=== PATIENT | male | born 1990 | race Hispanic/Latino ===

== ENCOUNTER 2018-01-23 18:46 | Emergency (ER) | payer MEDICAID ==
[2018-01-23] MEDS ORDERED: LIDOCAINE 1% MPF 5 ML VIAL ONE (19:35)
[2018-01-23] MEDS ORDERED: TETANUS & DIPHTHERIA TOX,ADULT 0.5 ML VIAL ONE (19:35)
--- NOTE | 2018-01-23 20:08 | RAD REPORT ---
EXAM DESCRIPTION: RAD - Hand Left 3 View - 01/23/2018 8:02 pm CLINICAL HISTORY: Laceration to the thumb COMPARISON: None. FINDINGS: No fracture, dislocation or periosteal reaction noted. No acute bone or joint finding. No air or foreign body in the soft tissues. IMPRESSION: No foreign body. No acute bone finding.
--- NOTE | 2018-01-23 21:13 | ER ---
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 Transition of care: patient was not received from another setting of care. Onset of symptoms was January 23, 2018. Initial Sepsis Screen: Does the patient meet any 2 criteria? No. Patient's initial sepsis screen is negative. Does the patient have a suspected source of infection? No. Patient's initial sepsis screen is negative. Care prior to arrival: None. 18:50 Method Of Arrival: Ambulatory 18:50 Acuity: GURINDER 4 hj Triage Assessment: 18:52 General: Appears in no apparent distress. uncomfortable, Behavior is calm, cooperative, hj appropriate for age. Pain: Complains of pain in palmar aspect of distal phalanx of left thumb. Musculoskeletal: No signs and/or symptoms reported regarding the musculoskeletal system. Injury Description: Laceration. 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 - Social history:: Smoking status: Patient/guardian denies using tobacco. Screenin:49 Abuse screen: Denies threats or abuse. Denies injuries from another. Nutritional bs1 screening: No deficits noted. Tuberculosis screening: No symptoms or risk factors identified. Fall Risk None identified. Assessment: 19:00 General: Appears uncomfortable, Behavior is cooperative, anxious. Pain: Complains of bs1 pain in palmar aspect of distal phalanx of left thumb Pain does not radiate. Pain currently is 9 out of 10 on a pain scale. Quality of pain is described as throbbing. Neuro: Level of Consciousness is awake, alert, obeys commands, Oriented to person, place, time, situation, Appropriate for age. Cardiovascular: Denies chest pain, palpitations, shortness of breath, Heart tones S1 S2 present Capillary refill < 3 seconds Patient's skin is warm and dry. Respiratory: Airway is patent Trachea midline Respiratory effort is even, unlabored, Respiratory pattern is regular, symmetrical, Breath sounds are clear bilaterally. GI: No deficits noted. No signs and/or symptoms were reported involving the gastrointestinal system. : No deficits noted. No signs and/or symptoms were reported regarding the genitourinary system. EENT: No deficits noted. No signs and/or symptoms were reported regarding the EENT system. Derm: Skin x2 lateration to left thumb on biltaeral sides Wound noted Reports pain that is 9 out of 10 on a pain scale. Musculoskeletal: Circulation, motion, and sensation intact. Capillary refill < 3 seconds, Range of motion: limited in left hand Swelling present in left hand, left thumb. Injury Description: Laceration sustained to x2 laceration, both sides of left thumb, outter side of left thumb 1cm, inner side 2cm a small amount of bleeding noted at this time. 19:10 Reassessment: Soaked patients thumb in iodine/NS. Tolerated Well, suture kit set up for bs1 provider. 20:00 Reassessment: No changes from previously documented assessment. Patient and/or family bs1 updated on plan of care and expected duration. Pain level reassessed. Patient is alert, oriented x 3, equal unlabored respirations, skin warm/dry/pink. Neurovascular checks WNL. 20:55 Reassessment: Provider at bedside suturing thumb. bs1 21:41 Reassessment: Cleansed w/ NS applied triple antibiotic ointment, 4x4 applied with bs1 kerlix patient tolerated. Vital Signs: 18:52 BP 125 / 82; Pulse 89; Resp 18; Temp 97.8(TE); Pulse Ox 100% on R/A; Weight 86.64 kg; hj Height 5 ft. 5 in. (165.10 cm); Pain 5/10; 19:37 BP 143 / 74 RA Sitting (auto/reg); Pulse 91; Resp 18; Temp 97.8(TE); Pulse Ox 98% ; cc Pain 5/10; 20:37 BP 126 / 83; Pulse 85; Resp 17; Pulse Ox 100% on R/A; Pain 5/10; bs1 21:30 BP 131 / 78; Pulse 85; Resp 17; Temp 98.5(O); Pulse Ox 100% ; bs1 18:52 Body Mass Index 31.79 (86.64 kg, 165.10 cm) ED Course: 18:49 Patient arrived in ED. mr 18:52 Triage completed. hj 18:52 Arm band placed on right wrist. hj 19:14 Baljit Valverde NP is PHCP. pm1 19:15 Shashi Guerrier MD is Attending Physician. pm1 19:31 Taya Redman, THANH is Primary Nurse. bs1 19:49 Patient has correct armband on for positive identification. Bed in low position. Call bs1 light in reach. Side rails up X 1. Pulse ox on. NIBP on. 20:02 Hand Left 3 View XRAY In Process Unspecified. EDMS 21:42 No provider procedures requiring assistance completed. Patient did not have IV access bs1 during this emergency room visit. Administered Medications: 19:40 Drug: Tetanus-Diphtheria Toxoid Adult 0.5 ml {Taper Operator: [employer]. Exp: bs1 05/09/2020. Lot #: [id number]. } Route: IM; Site: left deltoid; 21:45 Follow up: Response: No adverse reaction bs1 20:55 Drug: Lidocaine (1 %) 5 ml Volume: 5 ml; Route: Infiltration; bs1 21:45 Follow up: Response: No adverse reaction bs1 Outcome: 21:12 Discharge ordered by MD. pm1 21:43 Discharged to home ambulatory. bs1 21:43 Condition: stable 21:43 Discharge instructions given to patient, Instructed on discharge instructions, follow up and referral plans. medication usage, Demonstrated understanding of instructions, follow-up care, medications, wound care, Prescriptions given X 1. 21:46 Patient left the ED. bs1 Signatures: Dispatcher [employer] EDOK JewellElif Julee Sims cc Roque Ndiaye RN RN Baljit Valverde NP DIABETES TERRITORY MANAGER pm1 Taya Redman, RN RN bs1 Corrections: (The following items were deleted from the chart) 18:54 18:52 Pulse 89bpm; Resp 18bpm; Pulse Ox 100% RA; Temp 97.8F Temporal; 86.64 kg; Height hj 5 ft. 5 in.; BMI: 31.7; Pain 5/10; hj
--- NOTE | 2018-01-23 21:13 | EDPHYS ---
Physician Documentation [facility] Name: Dada Claudio Age: 27 yrs Sex: Male : 1990 Arrival Date: 01/23/2018 Time: 18:49 Bed 20 Private MD: ED Physician Shashi Guerrier HPI: 01/23 21:00 This 27 yrs old Male presents to ER via Ambulatory with complaints of Thumb pm1 Injury. 21:00 The patient or guardian reports a laceration. The complaints affect the palmar aspect pm1 of proximal phalanx of left thumb. Context: resulted from Accident. Onset: The symptoms/episode began/occurred just prior to arrival. Associated signs and symptoms: Pertinent negatives: cyanosis distally, decreased sensation distally, numbness distally, tingling distally. patient was cutting a zip tie and accidentally cut his left thumb with a knife. 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 - Social history:: Smoking status: Patient/guardian denies using tobacco. ROS: 21:00 Constitutional: Negative for fever, chills, and weight loss, Eyes: Negative for injury, pm1 pain, redness, and discharge, ENT: Negative for injury, pain, and discharge, Neck: Negative for injury, pain, and swelling, Cardiovascular: Negative for chest pain, palpitations, and edema, Respiratory: Negative for shortness of breath, cough, wheezing, and pleuritic chest pain, Abdomen/GI: Negative for abdominal pain, nausea, vomiting, diarrhea, and constipation, Back: Negative for injury and pain, MS/Extremity: Negative for injury and deformity. 21:00 Neuro: Negative for headache, weakness, numbness, tingling, and seizure. 21:00 Skin: Positive for laceration(s), of the palmar aspect of proximal phalanx of left thumb. Exam: 21:00 Constitutional: This is a well developed, well nourished patient who is awake, alert, pm1 and in no acute distress. Head/Face: Normocephalic, atraumatic. Chest/axilla: Normal chest wall appearance and motion. Nontender with no deformity. No lesions are appreciated. Cardiovascular: Regular rate and rhythm with a normal S1 and S2. No gallops, murmurs, or rubs. Normal PMI, no JVD. No pulse deficits. Respiratory: Lungs have equal breath sounds bilaterally, clear to auscultation and percussion. No rales, rhonchi or wheezes noted. No increased work of breathing, no retractions or nasal flaring. Abdomen/GI: Soft, non-tender, with normal bowel sounds. No distension or tympany. No guarding or rebound. No evidence of tenderness throughout. Back: No spinal tenderness. No costovertebral tenderness. Full range of motion. 21:00 Skin: injury, laceration(s), the wound is approximately 2 cm(s), with a depth of 1 cm(s), of the palmar aspect of proximal phalanx of left thumb. 21:00 Neuro: Orientation: is normal, Sensation: is normal, no obvious gross deficits, Gait: is steady, at a normal pace, without difficulty. Vital Signs: 18:52 BP 125 / 82; Pulse 89; Resp 18; Temp 97.8(TE); Pulse Ox 100% on R/A; Weight 86.64 kg; hj Height 5 ft. 5 in. (165.10 cm); Pain 5/10; 19:37 BP 143 / 74 RA Sitting (auto/reg); Pulse 91; Resp 18; Temp 97.8(TE); Pulse Ox 98% ; cc Pain 5/10; 20:37 BP 126 / 83; Pulse 85; Resp 17; Pulse Ox 100% on R/A; Pain 5/10; bs1 21:30 BP 131 / 78; Pulse 85; Resp 17; Temp 98.5(O); Pulse Ox 100% ; bs1 18:52 Body Mass Index 31.79 (86.64 kg, 165.10 cm) hj Laceration: 21:09 Wound Repair of 3cm ( 1.2in ) subcutaneous laceration to palmar aspect of distal pm1 phalanx of left thumb. Linear shaped.. Distal neuro/vascular/tendon intact. Anesthesia: Local anesthetic administered with 2 mls of 1% lidocaine. Wound prep: Extensive cleansing with betadine by security systems technician, Wound irrigation with saline by security systems technician by ut, Wound explored extensively, Copious irrigation. Skin closed with 6 4-0 Prolene using simple sutures and sterile technique. Dressed with 4x4's. Patient tolerated well. MDM: 19:25 Patient medically screened. pm1 21:11 Data reviewed: vital signs. Data interpreted: Pulse oximetry: on room air is 98 %. pm1 Interpretation: normal. Counseling: I had a detailed discussion with the patient and/or guardian regarding: the historical points, exam findings, and any diagnostic results supporting the discharge/admit diagnosis, radiology results, the need for outpatient follow up, suture removal in 7-10 days, to return to the emergency department if symptoms worsen or persist or if there are any questions or concerns that arise at home. 01/23 19:48 Order name: Hand Left 3 View XRAY; Complete Time: 20:14 pm1 01/23 19:26 Order name: Prolene, Sutures; Complete Time: 19:36 pm1 01/23 19:26 Order name: Dressing - Wound; Complete Time: 19:36 pm1 01/23 19:26 Order name: Gloves, Sterile; Complete Time: 19:36 pm1 01/23 19:26 Order name: Setup Suture Tray; Complete Time: 19:36 pm1 Administered Medications: 19:40 Drug: Tetanus-Diphtheria Toxoid Adult 0.5 ml {Knitting Inspector: [employer]. Exp: bs1 05/09/2020. Lot #: [id number]. } Route: IM; Site: left deltoid; 21:45 Follow up: Response: No adverse reaction bs1 20:55 Drug: Lidocaine (1 %) 5 ml Volume: 5 ml; Route: Infiltration; bs1 21:45 Follow up: Response: No adverse reaction bs1 Disposition: 01/24 02:55 Co-signature as Attending Physician, Shashi Guerrier MD. Disposition: 01/23/18 21:12 Discharged to Home. Impression: Laceration without foreign body of left thumb without damage to nail. - Condition is Stable. - Discharge Instructions: Laceration Care, Adult. - Prescriptions for Bactrim DS 800- 160 mg Oral Tablet - take 1 tablet by ORAL route every 12 hours for 10 days; 20 tablet. - Medication Reconciliation Form, Thank You Letter, Antibiotic Education form. - Follow up: Emergency Department; When: As needed; Reason: Worsening of condition. Follow up: Private Physician; When: 7 - 10 days; Reason: Wound Recheck, Recheck today's complaints, Continuance of care, Staple/Suture removal, Re-evaluation by your physician. - Problem is new. - Symptoms have improved. - Notes: Take ibuprofen or tylenol as needed for pain Signatures: Dispatcher [employer] EDMS Roque Ndiaye, RN RN hj Baljit Valverde, CAMPUS SECURITY DIRECTOR CAMPUS SECURITY DIRECTOR pm1 Shashi Guerrier MD MD gs Salazar, Brittany, RN RN bs1 Corrections: (The following items were deleted from the chart) 01/23 19:59 19:26 Hand Right 3 View+RAD.RAD.BRZ ordered. EDMS EDMS
== END 2018-01-23 21:46 | disposition home or self-care (01) ==
LOC: ER 18:46
PROC: 0JQK0ZZ Repair Left Hand Subcutaneous Tissue and Fascia, Open Approach (ICD-10-PCS; principal; 2018-01-23)
DX: S61.012A Laceration without foreign body of left thumb without damage to nail, initial encounter (principal); W26.0XXA Contact with knife, initial encounter; Y93.89 Activity, other specified; Y92.9 Unspecified place or not applicable; Z23 Encounter for immunization
CPT/HCPCS: 90714; 99284

== ENCOUNTER 2020-07-25 11:47 | Emergency (ER) | payer MEDICAID ==
--- OUTSIDE RECORDS SUMMARY | 2020-07-25 11:49 | XMS REPORT | Continuity of Care Document ---
:1990 Author Organization [facility] t Address [address] [place] [address] Care Team Providers Name Role Phone Unavailable Unavailable Unavailable Problems Condition Condition Condition Status Onset Resolution Last Treating Co mments Source Name Details Category Date Date Treatment Clinician Date Pulmonary Pulmonary Problem Active [facility] valve [facility] - stenosis, stenosis, Eloy nahed unspecifie unspecifie l d etiology d etiology Ou tpati ent Clinics Encounter Encounter Diagnosis Active [facility] - general general Memoria adult adult l medical medical Outpati examinatio examinatio en t n without n without Clin ics abnormal abnormal findings findings Abnormal Abnormal Problem Active [facility] - rhythm rhythm [facility] Alcoholism Alcoholism Diagnosis Active [facility] Allergies, Adverse Reactions, Alerts This patient has no known allergies or adverse reactions. Medications This patient has no known medications. Procedures This patient has no known procedures. Encounters Start End Encounter Admission Attending Care Care Encounter Source Date/Time Date/Time Type Type Clinicians Facility Department ID 2020-04-22 2020-04-22 Outpatient Jenny Alvaradot [id number] [facility] 13:20:00 13:20:[address] [facility] Medicine Medicine Outpati ent Clinics 2019-04-22 2019-04-22 [facility] [id number] [facility] 13:00:00 13:00:[address] [facility] Medicine Medicine Outpati ent Clinics 2018-04-22 2018-04-22 [facility] [id number] [facility] 10:45:00 10:45:[address] [facility] Medicine Outpati ent Clinics 2018-01-21 2018-01-21 [facility] [id number] [facility] 11:15:00 11:15:00 [facility] Medicine Outpati ent Clinics Results This patient has no known results.
[2020-07-25] MEDS ORDERED: IBUPROFEN 400 MG TAB ONE (12:33)
[2020-07-25] MEDS ORDERED: HYDROCODONE/APAP 10/325 TAB ONE (12:33)
[2020-07-25 12:37] LABS: Urine Blood NEGATIVE (NEG); Urine Glucose NEGATIVE (NEG); Urine Protein NEGATIVE (NEG); Urine Specific Gravity 1.025 (1.005-1.030)
[2020-07-25 12:43] LABS: Urine Bacteria <20 /HPF (NONE SEEN); Urine Culture Reflex Order NOT NEEDED; Urine RBC <5 /HPF (NONE SEEN)
--- NOTE | 2020-07-25 13:12 | EDPHYS ---
Physician Documentation [facility] Name: Dada Claudio Age: 30 yrs Sex: Male : 1990 Arrival Date: 07/25/2020 Time: 11:48 Bed 20 Private MD: ED Physician Aries Webb HPI: 07/25 12:00 This 30 yrs old Male presents to ER via Unassigned with complaints of Scrotal rn Pain, Acute Onset. 12:00 The patient presents with scrotal pain, of the right side, without swelling, without rn erythema. 12:02 Modifying factors: The symptoms are alleviated by nothing, the symptoms are aggravated rn by pressure. Severity of symptoms: At their worst the symptoms were moderate, in the emergency department the symptoms have improved. The patient has experienced similar episodes in the past. Reports similar to past when diagnosed with scrotal cyst. No trauma. No fever/vomiting/penile discharge. No swelling or redness. No injury. . Historical: - Allergies: 12:09 No Known Allergies; bp - Home Meds: 12:09 None [Active]; bp - PMHx: 12:09 R TESTICLE CYST; bp - Immunization history:: Adult Immunizations up to date. - Social history:: Smoking status: Patient denies any tobacco usage or history of. - Family history:: not pertinent. - Hospitalizations: : No recent hospitalization is reported. ROS: 12:13 Constitutional: Negative for fever, chills, and weight loss, Abdomen/GI: Negative for rn abdominal pain, nausea, vomiting, diarrhea, and constipation, : Negative for injury, bleeding, discharge, and swelling. Exam: 12:13 Constitutional: This is a well developed, well nourished patient who is awake, alert, rn and in no acute distress. Abdomen/GI: soft, non-tender Male : No discharge or lesions. No swelling. Small mobile soft mass palpated inferior right scrotum. No epididymis swelling or tenderness. No discoloration. Vital Signs: 11:55 BP 137 / 101; Pulse 90; Resp 16; Temp 98; Pulse Ox 98% ; bp 13:22 BP 139 / 90; Pulse 88; Resp 16; Temp 98; Pulse Ox 98% ; bp MDM: 11:55 Patient medically screened. rn 13:10 Differential diagnosis: cyst, varicocele, torsion. Data reviewed: vital signs, nurses rn notes, lab test result(s), radiologic studies, ultrasound, and as a result, I will discharge patient. Counseling: I had a detailed discussion with the patient and/or guardian regarding: the historical points, exam findings, and any diagnostic results supporting the discharge/admit diagnosis, lab results, radiology results, the need for outpatient follow up, to return to the emergency department if symptoms worsen or persist or if there are any questions or concerns that arise at home. Response to treatment: the patient's symptoms have mildly improved after treatment, and as a result, I will discharge patient. Special discussion: I discussed with the patient/guardian in detail that at this point there is no indication for admission to the hospital. It is understood, however, that if the symptoms persist or worsen the patient needs to return immediately for re-evaluation. Based on the history and exam findings, there is no indication for further emergent testing or inpatient evaluation. I discussed with the patient/guardian the need to see the urologist for further evaluation of the symptoms. ED course: Small right varicocele, no evidence of torsion. Neg UA. . 07/25 12:00 Order name: Urine Microscopic Only; Complete Time: 12:46 rn 07/25 12:30 Order name: Urine Dipstick--Ancillary (enter results); Complete Time: 12:46 em1 07/25 12:03 Order name: Scrotum Testicles EDMS 07/25 12:00 Order name: Urine Dipstick-Ancillary (obtain specimen); Complete Time: 12:29 rn Administered Medications: 12:20 Drug: [place] 10 mg-325 mg 1 tabs Route: PO; bp 13:22 Follow up: Response: Pain is decreased bp 12:20 Drug: Motrin 800 mg Route: PO; bp 13:22 Follow up: Response: Pain is decreased bp Disposition: 07/25/20 13:11 Discharged to Home. Impression: Scrotal varicocele, right. - Condition is Stable. - Discharge Instructions: Scrotal Masses, Scrotal Swelling. - Prescriptions for Tramadol 50 mg Oral Tablet - take 1 tablet by ORAL route every 8 hours as needed; 15 tablet. - Medication Reconciliation Form, Thank You Letter, Antibiotic Education, Prescription Opioid Use form. - Follow up: Private Physician; When: As needed; Reason: Recheck today's complaints, Re-evaluation by your physician. - Problem is new. - Symptoms have improved. Signatures: Dispatcher [employer] [facility] Aries Webb MD MD rn Peltier, Brian, RN RN bp Corrections: (The following items were deleted from the chart) 12:23 12:07 Scrotum Testicles+US.RAD.BHUPENDRAZ ordered. [facility] 13:29 13:11 07/25/2020 13:11 Discharged to Home. Impression: Scrotal varicocele, right. bp Condition is Stable. Forms are Medication Reconciliation Form, Thank You Letter, Antibiotic Education, Prescription Opioid Use. Follow up: Private Physician; When: As needed; Reason: Recheck today's complaints, Re-evaluation by your physician. Problem is new. Symptoms have improved. rn
--- NOTE | 2020-07-25 13:12 | ER ---
Nurse's Notes [facility] Name: Dada Claudio Age: 30 yrs Sex: Male : 1990 Arrival Date: 07/25/2020 Time: 11:48 Bed 20 Private MD: Diagnosis: Scrotal varicocele, right Presentation: 07/25 11:55 Chief complaint: Patient states: RIGHT TESTICLE PAIN. Coronavirus screen: At this time, bp the client does not indicate any symptoms associated with coronavirus-19. Ebola Screen: No symptoms or risks identified at this time. Initial Sepsis Screen: Does the patient meet any 2 criteria? No. Patient's initial sepsis screen is negative. Does the patient have a suspected source of infection? No. Patient's initial sepsis screen is negative. Risk Assessment: Do you want to hurt yourself or someone else? Patient reports no desire to harm self or others. Onset of symptoms is unknown. 11:55 Method Of Arrival: Ambulatory bp 11:55 Acuity: GURINDER 3 bp Triage Assessment: 12:09 General: Appears in no apparent distress. uncomfortable, Behavior is cooperative, bp appropriate for age, anxious. Pain: Complains of pain in groin. EENT: No deficits noted. Neuro: No deficits noted. Cardiovascular: No deficits noted. Respiratory: No deficits noted. GI: No signs and/or symptoms were reported involving the gastrointestinal system. : Reports Scrotal pain: sudden onset. Derm: No deficits noted. Musculoskeletal: No deficits noted. Historical: - Allergies: 12:09 No Known Allergies; bp - Home Meds: 12:09 None [Active]; bp - PMHx: 12:09 R TESTICLE CYST; bp - Immunization history:: Adult Immunizations up to date. - Social history:: Smoking status: Patient denies any tobacco usage or history of. - Family history:: not pertinent. - Hospitalizations: : No recent hospitalization is reported. Screenin:10 Abuse screen: Denies threats or abuse. Denies injuries from another. Nutritional bp screening: No deficits noted. Tuberculosis screening: No symptoms or risk factors identified. Fall Risk None identified. Assessment: 12:10 General: SEE TRIAGE NOTE. bp 13:23 Reassessment: PT D/C HOME AMBULATORY, DX WITH SCROTAL VARICOCELE. bp Vital Signs: 11:55 BP 137 / 101; Pulse 90; Resp 16; Temp 98; Pulse Ox 98% ; bp 13:22 BP 139 / 90; Pulse 88; Resp 16; Temp 98; Pulse Ox 98% ; bp ED Course: 11:48 Patient arrived in ED. ag5 11:55 Aries Webb MD is Attending Physician. rn 12:05 Bhavin Meza, RN is Primary Nurse. bp 12:06 Triage completed. bp 12:10 Arm band placed on. bp 12:10 Patient has correct armband on for positive identification. Bed in low position. Call bp light in reach. Side rails up X2. 13:02 Scrotum Testicles In Process Unspecified. EDMS 13:23 No provider procedures requiring assistance completed. Patient did not have IV access bp during this emergency room visit. Administered Medications: 12:20 Drug: [place] 10 mg-325 mg 1 tabs Route: PO; bp 13:22 Follow up: Response: Pain is decreased bp 12:20 Drug: Motrin 800 mg Route: PO; bp 13:22 Follow up: Response: Pain is decreased bp Outcome: 13:11 Discharge ordered by . rn 13:23 Discharged to home ambulatory. bp 13:23 Condition: stable 13:23 Discharge instructions given to patient, Instructed on discharge instructions, follow up and referral plans. medication usage, Demonstrated understanding of instructions, follow-up care, medications, Prescriptions given X 1. 13:29 Patient left the ED. bp Signatures: Dispatcher [employer] EDTX Aries Webb MD MD rn Bhavin Meza, RN RN bp HayneskinKevin [email or web address] Corrections: (The following items were deleted from the chart) 13:24 13:23 Discharge instructions given to patient, Instructed on discharge instructions, bp follow up and referral plans. Demonstrated understanding of instructions, follow-up care, bp
--- NOTE | 2020-07-25 13:33 | RAD REPORT ---
EXAM DESCRIPTION: US - Scrotum Testicles - 07/25/2020 1:02 pm CLINICAL HISTORY: right testicular pain COMPARISON: SCROTUM TESTICLES dated 11/14/2013 FINDINGS: The right testicle 5.4 x 2.7 x 2.3 cm. No intratesticular masses or evidence of testicular torsion. The left testicle 4.9 x 3.1 x 2.5 cm. No intratesticular masses or evidence of testicular torsion. Both epididymides are normal in size and appearance. No pathologic fluid collections. Small right varicocele. IMPRESSION: No evidence of testicular torsion or intratesticular mass. Small right varicocele.
[2020-07-25 13:48] VITALS: TEMP 98; O2SAT 98
[2020-07-25 13:54] VITALS: BP 139/90
== END 2020-07-25 13:29 | disposition home or self-care (01) ==
LOC: ER 11:47
DX: I86.1 Scrotal varices (principal)
CPT/HCPCS: 76870; 81003; 81015; 99283

== ENCOUNTER 2021-09-09 12:07 | Emergency (ER) | payer OTHER ==
--- OUTSIDE RECORDS SUMMARY | 2021-09-09 12:10 | XMS REPORT | Continuity of Care Document ---
:1990 Author Organization [facility] t Address [address] [place] [address] Care Team Providers Name Role Phone Unavailable [...] Facility Department ID 2020-04-22 2020-04-22 Outpatient [facility] [place] [id number] [facility] 13:20:00 13:20:00 [facility] Clin[facility] 2019-04-22 2019-04-22 [facility] [id number] [facility] 13:00:00 13:00:00 [facility] 2018-04-22 2018-04-22 [facility] [id number] [facility] [address] 10:45:00 10:45:00 [facility] Medicine Outpati ent Clinics 2018-01-21 2018-01-21 [facility] [id number] [facility] 11:15:00 11:15:00 t [facility] Medicine Outpati ent Clinics Results This patient has no known results.
--- NOTE | 2021-09-09 13:47 | EDPHYS ---
Physician Documentation [facility] Name: Dada Claudio Age: 31 yrs Sex: Male : 1990 Arrival Date: 09/09/2021 Time: 12:11 Bed 8 Private MD: ED Physician Aries Webb HPI: 09/09 12:24 This 31 yrs old Male presents to ER via Ambulatory with complaints of Ear jmm Problem. 12:24 The patient presents with a foreign body sensation, a fullness. Onset: The jmm symptoms/episode began/occurred gradually, 1 day(s) ago. Modifying factors: The symptoms are alleviated by nothing, the symptoms are aggravated by nothing. Associated signs and symptoms: Pertinent negatives: cough, fever, shortness of breath. Symptoms occurred after using a Q-tip to remove wax from his right ear. 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 - Social history:: Smoking status: Patient denies any tobacco usage or history of. ROS: 12:24 Constitutional: Negative for fever, chills, and weight loss, Cardiovascular: Negative jmm for chest pain, palpitations, and edema, Respiratory: Negative for shortness of breath, cough, wheezing, and pleuritic chest pain. 12:24 ENT: Positive for ear pain. 12:24 All other systems are negative. Exam: 12:24 Constitutional: This is a well developed, well nourished patient who is awake, alert, jmm and in no acute distress. Head/Face: atraumatic. Eyes: EOMI, no conjunctival erythema appreciated 12:24 Neck: Trachea midline, Supple Chest/axilla: Normal chest wall appearance and motion. Cardiovascular: Regular rate and rhythm. No edema appreciated Respiratory: Normal respirations, no respiratory distress appreciated Abdomen/GI: Non distended, soft Back: Normal ROM Skin: General appearance color normal MS/ Extremity: Moves all extremities, no obvious deformities appreciated, no edema noted to the lower extremities Neuro: Awake and alert, normal gait Psych: Behavior is normal, Mood is normal, Patient is cooperative and pleasant 12:24 ENT: TM's: erythema, that is moderate, on the right, Partial TM occlusion. Vital Signs: 12:17 BP 141 / 84; Pulse 99; Resp 18; Temp 96.9; Pulse Ox 98% ; cs9 12:19 Weight 85.73 kg; Height 5 ft. 7 in. (170.18 cm); Pain 0/10; ll1 13:14 BP 132 / 78; Pulse 92; Resp 16; Pulse Ox 99% on R/A; ll3 13:50 BP 126 / 78; Pulse 99; Resp 17; Pulse Ox 96% on R/A; jl7 12:19 Body Mass Index 29.60 (85.73 kg, 170.18 cm) ll1 MDM: 12:24 Patient medically screened. [facility] 13:45 Data reviewed: vital signs, nurses notes. Counseling: I had a detailed discussion with maria the patient and/or guardian regarding: the historical points, exam findings, and any diagnostic results supporting the discharge/admit diagnosis, the need for outpatient follow up, to return to the emergency department if symptoms worsen or persist or if there are any questions or concerns that arise at home. 09/09 12:24 [facility] Order: [facility]!!; Complete Time: 13:09 [facility] Administered Medications: No medications were administered Disposition: 09/10 07:03 Co-signature as Attending Physician, Aries Webb MD I agree with the assessment and rn plan of care. Disposition Summary: 09/09/21 13:46 Discharge Ordered Location: Home [facility] Condition: Stable [facility] Diagnosis - Acute serous otitis media, right ear jmm - Partial cerumen impaction [facility] Followup: [facility] - With: Betty Brown MD - When: 2 - 3 days - Reason: Recheck today's complaints, Continuance of care, Re-evaluation by your physician Discharge Instructions: - Earwax Buildup, Adult [facility] - Otitis Media, Adult [facility] - Discharge Summary Sheet tw2 Forms: - Medication Reconciliation Form [facility] - Thank You Letter [facility] - Work release form tw2 - Antibiotic Education [facility] - Prescription Opioid Use [facility] Prescriptions: - Augmentin 875-125 mg Oral Tablet - take 1 tablet by ORAL route every 12 hours for 10 days; 20 tablet; Refills: 0, [facility] Product Selection Permitted Signatures: MicFidel cotter PA PA jmm Nieto, Roman, MD MD rn Nemesio Mathews RN RN ll1 Corrections: (The following items were deleted from the chart) 09/09 12:19 12:15 PMHx: heart condition-pulmonary; ll1 ll1
--- NOTE | 2021-09-09 13:47 | ER ---
Nurse's Notes [facility] Name: Dada Claudio Age: 31 yrs Sex: Male : 1990 Arrival Date: 09/09/2021 Time: 12:11 Bed 8 Private MD: Diagnosis: Acute serous otitis media, right ear;Partial cerumen impaction Presentation: 09/09 12:19 Chief complaint: Patient states: Used a Q-tip to clean his R ear out 3 days ago. ll1 Decreased hearing, and some pain since. Believes he has impacted serum. No fever. Coronavirus screen: Vaccine status: Patient reports receiving the 2nd dose of the covid vaccine. Client denies travel out of the [place] in the last 14 days. At this time, the client does not indicate any symptoms associated with coronavirus-19. Ebola Screen: Patient denies travel to an Ebola-affected area in the 21 days before illness onset. Initial Sepsis Screen: Does the patient meet any 2 criteria? No. Patient's initial sepsis screen is negative. Does the patient have a suspected source of infection? Yes: Other: ear pain. Risk Assessment: Do you want to hurt yourself or someone else? Patient reports no desire to harm self or others. Onset of symptoms was September 07, 2021. 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 - Social history:: Smoking status: Patient denies any tobacco usage or history of. Screenin:14 Abuse screen: Denies threats or abuse. Nutritional screening: No deficits noted. tw2 Tuberculosis screening: No symptoms or risk factors identified. Fall Risk None identified. Assessment: 12:20 General: Appears in no apparent distress. uncomfortable, Behavior is calm, cooperative. ll3 Pain: Complains of pain in right ear Pain does not radiate. Neuro: Level of Consciousness is awake, alert, obeys commands, Oriented to person, place, time, situation, Speech is normal, Facial symmetry appears normal. Cardiovascular: Patient's skin is warm and dry. Respiratory: Airway is patent Respiratory effort is even, unlabored, Respiratory pattern is regular, symmetrical. EENT: Ear canal Impacted ear wax. Reports decreased hearing in right ear. Derm: Skin is pink, warm \\T\\ dry. 13:08 Reassessment: Right ear irrigated with 40 mL warmed NS, no wax removed at this time. jl7 ERP notified, no new orders received. 13:50 Reassessment: Patient appears in no apparent distress at this time. No changes from jl7 previously documented assessment. Patient and/or family updated on plan of care and expected duration. Pain level reassessed. Patient is alert, oriented x 3, equal unlabored respirations, skin warm/dry/pink. Vital Signs: 12:17 BP 141 / 84; Pulse 99; Resp 18; Temp 96.9; Pulse Ox 98% ; cs9 12:19 Weight 85.73 kg; Height 5 ft. 7 in. (170.18 cm); Pain 0/10; ll1 13:14 BP 132 / 78; Pulse 92; Resp 16; Pulse Ox 99% on R/A; ll3 13:50 BP 126 / 78; Pulse 99; Resp 17; Pulse Ox 96% on R/A; jl7 12:19 Body Mass Index 29.60 (85.73 kg, 170.18 cm) ll1 ED Course: 12:11 Patient arrived in ED. as 12:12 Fidel Young PA is PHCP. [facility] 12:12 Aries Webb MD is Attending Physician. [facility] 12:12 Bed in low position. Call light in reach. Pulse ox on. NIBP on. tw2 12:14 Evelyn Robert, THANH is Primary Nurse. ll3 12:15 Arm band placed on Patient placed in an exam room, on a stretcher. ll1 12:20 Triage completed. ll1 13:46 Betty Brown MD is Referral Physician. [facility] 14:06 No provider procedures requiring assistance completed. Patient did not have IV access tw2 during this emergency room visit. Administered Medications: No medications were administered Outcome: 13:46 Discharge ordered by . [facility] 14:07 Discharged to home ambulatory. tw2 14:07 Condition: stable 14:07 Discharge instructions given to patient, Instructed on discharge instructions, follow up and referral plans. medication usage, Demonstrated understanding of instructions, follow-up care, medications, Prescriptions given X 1. 14:07 Patient left the ED. tw2 Signatures: Fidel Young PA PA jmm Martinez, Amelia as Wise, Tara, RN RN tw2 Hugo Gerard RN RN jl7 Nemesio Mathews RN RN ll1 June Oh 9 Evelyn Robert RN RN ll3 Corrections: (The following items were deleted from the chart) 12:19 12:15 PMHx: heart condition-pulmonary; ll1 ll1
[2021-09-09 14:24] VITALS: TEMP 96.9
[2021-09-09 14:28] VITALS: BP 126/78; O2SAT 96
== END 2021-09-09 14:07 | disposition home or self-care (01) ==
LOC: ER 12:07
DX: H65.01 Acute serous otitis media, right ear (principal); H61.21 Impacted cerumen, right ear
CPT/HCPCS: 99283

== ENCOUNTER 2022-06-19 06:52 | Emergency (ER) | payer OTHER ==
--- OUTSIDE RECORDS SUMMARY | 2022-06-19 06:54 | XMS REPORT | Continuity of Care Document ---
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, stenosis, - [facility] I unspecifie unspecifie St d etiology d etiology [facility] Encounter Encounter Diagnosis Active C [facility]mon for for [facility] general general - [facility] adult adult [facility] examinatio examinatio Me dical n without n without Cent er abnormal abnormal findings findings Abnormal Abnormal Problem Active Commo n heart heart [facility] rhythm rhythm - [facility] Alcoholism Alcoholism Diagnosis Active [facility] Allergies, Adverse Reactions, Alerts This patient has no known allergies or adverse reactions. Medications This patient has no known medications. Procedures This patient has no known procedures. Encounters Start End Encounter Admission Attending Care Care Encounter Source Date/Time Date/Time Type Type Clinicians Facility Department ID 2020-04-22 2020-04-22 Outpatient Jenny [facility] [id number] [facility] 13:20:00 13:20:00 [facility] [address] [facility] 2019-04-22 2019-04-22 [facility] [id number] [facility] 13:00:00 13:00:[address] [facility] [address] [facility] 2018-04-22 2018-04-22 [facility] [id number] [facility] 10:45:00 10:45:[address] [facility] [address] [facility] 2018-01-21 2018-01-21 [facility] [id number] [facility] 11:15:00 11:15:00 [facility] Results This patient has no known results.
[2022-06-19] MEDS ORDERED: MORPHINE 2 MG/ML SYR ONE (08:16)
[2022-06-19] MEDS ORDERED: NA CHLORIDE 0.9% 500 ML ONE (08:17)
[2022-06-19] MEDS ORDERED: ONDANSETRON 4 MG/2 ML VIAL ONE (08:17)
--- NOTE | 2022-06-19 08:33 | RAD REPORT ---
EXAM DESCRIPTION: US - Extremity Venous Uni Ltd - 06/19/2022 7:50 am CLINICAL HISTORY: PAIN Leg swelling and edema. COMPARISON: No comparisons FINDINGS: Right lower extremity venous system was interrogated with Doppler technique. Normal flow, compressibility and augmentation was noted. There is no DVT present. IMPRESSION: No evidence of right lower extremity deep venous thrombosis.
--- NOTE | 2022-06-19 08:35 | RAD REPORT ---
EXAM DESCRIPTION: RAD - Ankle Right 3 View - 06/19/2022 8:10 am CLINICAL HISTORY: PAIN COMPARISON: Foot Right 3 View dated 06/19/2022 FINDINGS: Soft tissue swelling is seen about the ankle. No fracture or dislocation seen. No aggressi ve marrow pattern.
--- NOTE | 2022-06-19 08:40 | RAD REPORT ---
EXAM DESCRIPTION: RAD - Foot Right 3 View - 06/19/2022 8:10 am CLINICAL HISTORY: PAIN COMPARISON: No comparisons FINDINGS: Mild soft tissue swelling affects the right foot. The morphology in position of the navicu lar bone raises suspicion for possible Urena Driver syndrome. Advise clinical correlation.
[2022-06-19 08:41] LABS: Absolute Lymphocytes (CBC) 0.6 K/uL (0.7-4.9); Lymphocytes % 4.4 % (15.3-44.8); MCV 92.5 fL (80-100); MPV 9.4 fL (7.6-11.3); RBC Red Blood Cell Count 4.54 M/uL (4.33-5.43)
--- NOTE | 2022-06-19 09:22 | ER ---
Nurse's Notes [facility] Name: Dada Claudio Age: 32 yrs Sex: Male : 1990 Arrival Date: 06/19/2022 Time: 06:55 Bed 15 Private MD: Diagnosis: Pain in right ankle and joints of right foot-Ayanna Driver Presentation: 06/19 07:07 Chief complaint: Patient states: I have had swelling on my right foot. it seems like ha1 the swelling it is getting worse. pt. reports no injury to foot. Coronavirus screen: Vaccine status: Patient reports receiving the 2nd dose of the covid vaccine. Pfizer. Ebola Screen: No symptoms or risks identified at this time. Initial Sepsis Screen: Does the patient meet any 2 criteria? No. Patient's initial sepsis screen is negative. Does the patient have a suspected source of infection? No. Patient's initial sepsis screen is negative. Risk Assessment: Do you want to hurt yourself or someone else? Patient reports no desire to harm self or others. Onset of symptoms was June 18, 2022. 07:07 Method Of Arrival: Ambulatory ha1 07:07 Acuity: GURINDER 3 ha1 Triage Assessment: 07:14 General: Appears in no apparent distress. Behavior is calm, cooperative. Pain: ha1 Complains of pain in R. foot pain. Historical: - Allergies: 07:14 No Known Allergies; ha1 - Immunization history:: Adult Immunizations up to date. - Social history:: Smoking status: unknown. - Family history:: not pertinent. Screenin:25 Abuse screen: Denies threats or abuse. Denies injuries from another. Nutritional bp screening: No deficits noted. Tuberculosis screening: No symptoms or risk factors identified. Fall Risk None identified. Assessment: 07:15 General: Appears in no apparent distress. uncomfortable, Behavior is calm, cooperative, bp appropriate for age. Pain: Complains of pain in right foot. Neuro: No deficits noted. Cardiovascular: No deficits noted. Respiratory: No deficits noted. GI: No signs and/or symptoms were reported involving the gastrointestinal system. : No signs and/or symptoms were reported regarding the genitourinary system. EENT: No deficits noted. Derm: No deficits noted. Musculoskeletal: Swelling present in right foot. Vital Signs: 07:07 BP 113 / 73; Pulse 96; Resp 16 S; Temp 98.4(O); Pulse Ox 95% on R/A; Weight 83.01 kg; ha1 Height 5 ft. 5 in. (165.10 cm); 08:15 BP 121 / 85; Pulse 79; Resp 16; Pulse Ox 99% ; bp 09:22 BP 127 / 80; Pulse 86; Resp 16; Pulse Ox 98% ; bp 07:07 Body Mass Index 30.45 (83.01 kg, 165.10 cm) ha1 ED Course: 06:55 Patient arrived in ED. ja2 07:05 Bhavin Meza, RN is Primary Nurse. bp 07:14 Triage completed. ha1 07:14 Arm band placed on right wrist. ha1 07:16 Aayush Bae MD is Attending Physician. paola 07:25 Patient has correct armband on for positive identification. Bed in low position. Call bp light in reach. Side rails up X2. 07:52 US Extremity Venous Unilateral Ltd In Process Unspecified. EDMS 08:00 Inserted saline lock: 20 gauge in right antecubital area, using aseptic technique. bp Blood collected. 08:12 Foot Right 3 View XRAY In Process Unspecified. EDMS 08:12 Ankle Right 3 View XRAY In Process Unspecified. EDMS 09:17 Bhavin Awan DPM is Referral Physician. paola Administered Medications: 08:00 Drug: NS 0.9% 500 ml Route: IV; Rate: bolus; Site: right antecubital; bp 08:00 Drug: morphine 2 mg Route: IVP; Infused Over: 4 mins; Site: right antecubital; bp 09:05 Follow up: Response: Pain is decreased bp 08:00 Drug: Zofran (Ondansetron) 4 mg Route: IVP; Site: right antecubital; bp 09:05 Follow up: Response: No adverse reaction bp 09:21 Drug: Ketorolac 30 mg Route: IVP; Site: right antecubital; bp 09:22 Follow up: Response: No adverse reaction; Pain is decreased bp Outcome: 09:22 Discharge ordered by . paola 09:49 Patient left the ED. iw Signatures: Dispatcher [employer] EDMS Aayush Bae MD MD cha Williams, Irene, RN RN Bhavin Meza RN RN bp Trino, LizetRoseanna Ram, RN RN ha1
--- NOTE | 2022-06-19 09:22 | EDPHYS ---
Physician Documentation [facility] Name: Dada Claudio Age: 32 yrs Sex: Male : 1990 Arrival Date: 06/19/2022 Time: 06:55 Bed 15 Private MD: ED Physician Aayush Bae HPI: 06/19 09:14 This 32 yrs old Male presents to ER via Ambulatory with complaints of Foot paola Pain, Ankle Swelling. 09:14 The patient presents with decreased range of motion, pain, swelling, tenderness. The paola complaints affect the right foot, dorsum of right foot. Context: The problem was sustained at an unknown location, resulted from an unknown cause, the patient can partially bear weight. Onset: The symptoms/episode began/occurred 3 day(s) ago. Modifying factors: The symptoms are alleviated by elevation of extremity, ice packs, the symptoms are aggravated by weight bearing, movement, wearing shoes. Associated signs and symptoms: The patient has no apparent associated signs or symptoms, Pertinent positives:. Severity of symptoms: At their worst the symptoms were mild, in the emergency department the symptoms are unchanged. The patient has not experienced similar symptoms in the past. Historical: - Allergies: 07:14 No Known Allergies; ha1 - Immunization history:: Adult Immunizations up to date. - Social history:: Smoking status: unknown. - Family history:: not pertinent. ROS: 09:14 Constitutional: Negative for fever, chills, and weight loss, Eyes: Negative for injury, paola pain, redness, and discharge, ENT: Negative for injury, pain, and discharge, Neck: Negative for injury, pain, and swelling, Cardiovascular: Negative for chest pain, palpitations, and edema, Respiratory: Negative for shortness of breath, cough, wheezing, and pleuritic chest pain, Abdomen/GI: Negative for abdominal pain, nausea, vomiting, diarrhea, and constipation, Back: Negative for injury and pain, : Negative for injury, bleeding, discharge, and swelling, Skin: Negative for injury, rash, and discoloration, Neuro: Negative for headache, weakness, numbness, tingling, and seizure, Psych: Negative for depression, anxiety, suicide ideation, homicidal ideation, and hallucinations, Allergy/Immunology: Negative for hives, rash, and allergies, Endocrine: Negative for neck swelling, polydipsia, polyuria, polyphagia, and marked weight changes, Hematologic/Lymphatic: Negative for swollen nodes, abnormal bleeding, and unusual bruising. 09:14 MS/extremity: Positive for decreased range of motion, pain, swelling, tenderness, of the dorsum of right foot. Exam: 09:16 Constitutional: This is a well developed, well nourished patient who is awake, alert, paola and in no acute distress. Head/Face: Normocephalic, atraumatic. Eyes: Pupils equal round and reactive to light, extra-ocular motions intact. Lids and lashes normal. Conjunctiva and sclera are non-icteric and not injected. Cornea within normal limits. Periorbital areas with no swelling, redness, or edema. ENT: Nares patent. No nasal discharge, no septal abnormalities noted. Tympanic membranes are normal and external auditory canals are clear. Oropharynx with no redness, swelling, or masses, exudates, or evidence of obstruction, uvula midline. Mucous membranes moist. Neck: Trachea midline, no thyromegaly or masses palpated, and no cervical lymphadenopathy. Supple, full range of motion without nuchal rigidity, or vertebral point tenderness. No Meningismus. Chest/axilla: Normal chest wall appearance and motion. Nontender with no deformity. No lesions are appreciated. Cardiovascular: Regular rate and rhythm with a normal S1 and S2. No gallops, murmurs, or rubs. Normal PMI, no JVD. No pulse deficits. Respiratory: Lungs have equal breath sounds bilaterally, clear to auscultation and percussion. No rales, rhonchi or wheezes noted. No increased work of breathing, no retractions or nasal flaring. Abdomen/GI: Soft, non-tender, with normal bowel sounds. No distension or tympany. No guarding or rebound. No evidence of tenderness throughout. Back: No spinal tenderness. No costovertebral tenderness. Full range of motion. Male : Normal genitalia with no discharge or lesions. Skin: Warm, dry with normal turgor. Normal color with no rashes, no lesions, and no evidence of cellulitis. Neuro: Awake and alert, GCS 15, oriented to person, place, time, and situation. Cranial nerves II-XII grossly intact. Motor strength 5/5 in all extremities. Sensory grossly intact. Cerebellar exam normal. Normal gait. Psych: Awake, alert, with orientation to person, place and time. Behavior, mood, and affect are within normal limits. 09:16 Musculoskeletal/extremity: ROM: limited active range of motion, limited passive range of motion, Circulation is intact in all extremities. Sensation intact. Compartment Syndrome exam of affected extremity: is normal. Joints: All joints are normal except the right ankle displays limited range of motion, pain at rest, painful range of motion, swelling, tenderness, DVT Exam: negative Homans' sign noted on exam, no appreciated bluish discoloration, no erythema, no increased warmth, pain, swelling, tenderness. Vital Signs: 07:07 BP 113 / 73; Pulse 96; Resp 16 S; Temp 98.4(O); Pulse Ox 95% on R/A; Weight 83.01 kg; ha1 Height 5 ft. 5 in. (165.10 cm); 08:15 BP 121 / 85; Pulse 79; Resp 16; Pulse Ox 99% ; bp 09:22 BP 127 / 80; Pulse 86; Resp 16; Pulse Ox 98% ; bp 07:07 Body Mass Index 30.45 (83.01 kg, 165.10 cm) [facility] MDM: 07:16 Patient medically screened. [facility] 06/19 07:27 Order name: CBC with Diff; Complete Time: 09:03 [facility] 06/19 07:27 Order name: Comprehensive Metabolic Panel [facility] 06/19 07:27 Order name: Foot Right 3 View XRAY; Complete Time: 09:03 [facility] 06/19 07:27 Order name: Ankle Right 3 View XRAY; Complete Time: 09:03 [facility] 06/19 07:27 Order name: US Extremity Venous Unilateral Ltd; Complete Time: 09:03 [facility] Administered Medications: 08:00 Drug: NS 0.9% 500 ml Route: IV; Rate: bolus; Site: right antecubital; bp 08:00 Drug: morphine 2 mg Route: IVP; Infused Over: 4 mins; Site: right antecubital; bp 09:05 Follow up: Response: Pain is decreased bp 08:00 Drug: Zofran (Ondansetron) 4 mg Route: IVP; Site: right antecubital; bp 09:05 Follow up: Response: No adverse reaction bp 09:21 Drug: Ketorolac 30 mg Route: IVP; Site: right antecubital; bp 09:22 Follow up: Response: No adverse reaction; Pain is decreased bp Disposition Summary: 06/19/22 09:22 Discharge Ordered Location: Home [facility] Problem: new paola Symptoms: have improved paola Condition: Stable paola Diagnosis - Pain in right ankle and joints of right foot - Ayanna Driver cha Followup: paola - With: Private Physician - When: 2 - 3 days - Reason: Recheck today's complaints, Continuance of care, Re-evaluation by your physician Followup: paola - With: Bhavin Awan DPM - When: 2 - 3 days - Reason: Recheck today's complaints, Re-evaluation by your physician Discharge Instructions: - Discharge Summary Sheet paola - Joint Pain paola - Arthritis paola - Musculoskeletal Pain paola - Arthritis, [id number] paola - Joint Pain, [id number] paola Forms: - Medication Reconciliation Form paola - Thank You Letter paola - Antibiotic Education paola - Prescription Opioid Use [facility] Prescriptions: - Ibuprofen 600 mg Oral Tablet - take 1 tablet by ORAL route every 6 hours As needed take with food; 30 tablet; paola Refills: 0, Product Selection Permitted - Tylenol-Codeine #3 300 mg-30 mg Oral - take 2 tablet by ORAL route every 6 hours; 24 tablet; Refills: 0, Product paola Selection Permitted Signatures: Dispatcher [employer] Aayush Sneed MD MD cha Peltier, Brian, RN RN Roseanna Hobbs RN RN ha1
[2022-06-19] MEDS ORDERED: KETOROLAC 30 MG/ML INJ ONE (09:27)
[2022-06-19 09:43] LABS: Albumin 4.2 g/dL (3.4-5.0); Bilirubin Total 0.5 mg/dL (0.2-1.0); Potassium 4.2 mmol/L (3.5-5.1); Protein, Total 8.2 g/dL (6.4-8.2)
[2022-06-19 09:55] VITALS: TEMP 98.4
[2022-06-19 10:03] VITALS: BP 127/80; O2SAT 98
== END 2022-06-19 09:49 | disposition home or self-care (01) ==
LOC: ER 06:52
DX: M25.571 Pain in right ankle and joints of right foot (principal)
CPT/HCPCS: 85025; 36415; 80053; 73630; 73610; 93971; 96375; 96374; 99284; J2270; J7040; J2405